=== PATIENT | female | born 1950 | race Caucasian/White ===

== ENCOUNTER 2018-05-23 09:02 | Emergency (ER) | payer MEDICARE, OTHER, SELFPAY ==
[2018-05-23] VITALS (59 sets, daily range): BP systolic 125–183; BP diastolic 71–93; PULSE 52–81; RESP 9–26; TEMP 36.5; O2SAT 89–98
--- NOTE | 2018-05-23 09:31 | W.ED.GENAD ---
Discharge Plan Disposition Patient Disposition: AGAINST MEDICAL ADVICE Discharge Details Chief Complaint: Chest Pain Clinical Impression: Chest pain Primary Care Provider: SUSIE,LOCAL ED Provider: Shadi Velasquez Home Meds and New Rx's Prescriptions: New aspirin 325 mg tablet,delayed release (DR/EC) 325 mg PO DAILY Qty: 30 RF: 2 Continue multivitamin Tablet 1 tab PO DAILY RF: 0 cetirizine 10 mg Tablet 10 mg PO DAILY RF: 0 meloxicam 7.5 mg Tablet 7.5 mg PO BID RF: 0 simvastatin 20 mg Tablet 20 mg PO HS RF: 0 levothyroxine 125 mcg Tablet 125 mcg PO DAILY RF: 0 valsartan 160 mg Tablet 160 mg PO DAILY RF: 0 Discharge Instructions Instructions: Against Medical Advice (ED) Additional Instructions: You are leaving AGAINST MEDICAL ADVICE. You understand that you may have life-threatening her lifestyle modifying disease that could lead to permanent disability or should he leave without further diagnostic workup and potential treatment. You should have a stress test performed as soon as possible. Please contact your primary care physician to arrange follow-up. Return to the ER at any time for further workup. Medical Decision Making 9:34 --67-year-old female with history of hypertension and hyperlipidemia here with chest pain initially constant squeezing for 30 minutes at rest and now mild and intermittent. ECG reviewed and interpreted by me: Normal sinus rhythm, 79 bpm, left axis deviation, T-wave inversions noted in V1 and V2, poor R-wave progression no STEMI, nondiagnostic 10:15 --chest x-ray interpreted by radiology: Negative. Labs reviewed: age adjusted ddimer neg. initial trop neg. Plan to admit. Hospitalist paged. 10:45 -- Spoke with Dr. Mazariegos who accept the patient in admission. Discussed initial diagnostic workup with the patient and my plan for admission. Patient refusing admission. Patient has decisional making capacity at this time to make informed refusal of care. I explained to her specifically my concerns for acute life-threatening or lifestyle modifying disease it would go undiagnosed and untreated should she not stay for further workup. Typically explained my plan to admit her to the hospitalist service, keep her on a hospital monitor, obtain serial cardiac enzymes, and obtain stress test as soon as possible. Patient verbalized understanding of my concerns and still prefers to be discharged. I did convince her to stay for a 4 hour troponin and a repeat EKG- she is not agreeable to staying longer than this. I offered to help arrange for outpatient stress test and patient refused noting that she would plan to have this performed at home. I did encourage her to have this done as soon as possible. 14:14 --second trop reviewed and negative, unchanged from prior. 14:32 --repeat ECG reviewed and interpreted by me: Normal sinus rhythm 77 bpm, left axis deviation, no significant change from prior EKG. I again strongly encouraged the patient to stay for further diagnostics and treatment. I reiterated my concerns and potential risks. Patient continues to have decisional making capacity and refuses further treatment at this time and would like to leave AGAINST MEDICAL ADVICE HPI General Mode of arrival: ambulatory. Date/Time Provider Initiated Documentation: 05/23/18 09:17. Limitations to Documentation: no limitations. Information obtained by: patient. HPI Narrative: 67-year-old female with history of hypertension and hyperlipidemia, presents with chief complaint of chest pain. Patient notes pain started around 845 this morning while she was at rest. Pain described as a squeezing sensation. Pain was constant and persisted for 30 minutes. Pain was localized to anterior chest and radiated into her anterior neck. Pain was severe and rated 7/10. Pain is since now improved and is intermittent and mild rated 1/10. She has no associated shortness of breath. No associated calf pain or swelling. She did recently have a long distance travel from [place] by ground. Related Data Home Medications Medication Instructions Recorded Confirmed aspirin 325 mg PO DAILY #30 tab 05/23/18 cetirizine 10 mg PO DAILY 05/23/18 05/23/18 levothyroxine 125 mcg PO DAILY 05/23/18 05/23/18 meloxicam 7.5 mg PO BID 05/23/18 05/23/18 multivitamin 1 tab PO DAILY 05/23/18 05/23/18 simvastatin 20 mg PO HS 05/23/18 05/23/18 valsartan 160 mg PO DAILY 05/23/18 05/23/18 Previous Rx's Medication Instructions Recorded aspirin 325 mg PO DAILY #30 tab 05/23/18 Allergies Allergy/AdvReac Type Severity Reaction Status Date / Time Sulfa (Sulfonamide Allergy Hives Unverified 05/23/18 09:15 Antibiotics) General Stated Complaint: Chest Pain GORDON: 2 Review of Systems Review of Systems All systems reviewed & are unremarkable except as noted in HPI and below Constitutional Denies weakness Eyes Reports blurry vision Cardiovascular Reports chest pain, Denies syncope, Denies irregular heart rhythm and Denies dyspnea Respiratory Denies dyspnea Gastrointestinal Denies nausea and Denies vomiting Neurologic Denies syncope and Denies weakness [facility] Medical History Thyroid cancer (Acute) Hyperlipemia (Acute) HTN (hypertension) (Chronic) Social History Smoking/Tobacco Use Status: Never Exam Const General: cooperative and no acute distress Orientation: alert and awake HENMT Head: normocephalic and atraumatic Mouth: moist mucous membranes Eyes Conjunctivae: conjunctivae normal EOM: EOM intact bilaterally Neck Neck: normal visual inspection, trachea midline and No JVD Chest Chest: no tenderness Resp Effort & Inspection: normal respiratory effort Auscultation: clear to auscultation bilaterally, no rales, no rhonchi and no wheezes Cardio Rate: regular rate Rhythm: regular rhythm Heart Sounds: no gallops, no murmurs and no rubs GI Palpation: soft and nontender Auscultation: normal bowel sounds Skin General skin exam: dry skin Other: warm Neuro General: alert, awake, tone normal and moves all extremities Extrem General: no calf tenderness bilaterally and no pedal edema Psych Appearance: grossly normal Mental Status: mental status grossly normal Affect: normal affect Course Vital Signs Temperature 36.5 C 05/23/18 09:11 Pulse 75 05/23/18 09:11 Respiratory Rate 14 05/23/18 09:11 Blood Pressure 153/76 H 05/23/18 09:11 Pulse Oximetry 97 05/23/18 09:11 Temperature 36.5 C 05/23/18 09:11 Temperature Source Skin 05/23/18 09:11 Pulse 75 05/23/18 09:11 Respiratory Rate 14 05/23/18 09:11 Respiratory Effort 05/23/18 09:26 Blood Pressure 153/76 H 05/23/18 09:11 Blood Pressure Position Sitting 05/23/18 09:11 Pulse Oximetry 97 05/23/18 09:11 Oxygen Delivery Method Room Air 05/23/18 09:11 Oxygen Flow Rate 0 05/23/18 09:11
--- NOTE | 2018-05-23 09:36 | ED.GENADUL_ITS ---
Discharge Plan Disposition Patient Disposition: AGAINST MEDICAL ADVICE Discharge Details Chief Complaint: Chest Pain Clinical Impression: Chest pain Primary Care Provider: SUSIE,LOCAL ED Provider: Shadi Velasquez Home Meds and New Rx's Prescriptions: New aspirin 325 mg tablet,delayed release (DR/EC) 325 mg PO DAILY Qty: 30 RF: 2 Continue multivitamin Tablet 1 tab PO DAILY RF: 0 cetirizine 10 mg Tablet 10 mg PO DAILY RF: 0 meloxicam 7.5 mg Tablet 7.5 mg PO BID RF: 0 simvastatin 20 mg Tablet 20 mg PO HS RF: 0 levothyroxine 125 mcg Tablet 125 mcg PO DAILY RF: 0 valsartan 160 mg Tablet 160 mg PO DAILY RF: 0 Discharge Instructions Instructions: Against Medical Advice (ED) Additional Instructions: You are leaving AGAINST MEDICAL ADVICE. You understand that you may have life- threatening her lifestyle modifying disease that could lead to permanent disability or should he leave without further diagnostic workup and potential treatment. You should have a stress test performed as soon as possible. Please contact your primary care physician to arrange follow-up. Return to the ER at any time for further workup. Medical Decision Making 9:34 --67-year-old female with history of hypertension and hyperlipidemia here with chest pain initially constant squeezing for 30 minutes at rest and now mild and intermittent. ECG reviewed and interpreted by me: Normal sinus rhythm, 79 bpm, left axis deviation, T-wave inversions noted in V1 and V2, poor R-wave progression no STEMI, nondiagnostic 10:15 --chest x-ray interpreted by radiology: Negative. Labs reviewed: age adjusted ddimer neg. initial trop neg. Plan to admit. Hospitalist paged. 10:45 -- Spoke with Dr. Mazariegos who accept the patient in admission. Discussed initial diagnostic workup with the patient and my plan for admission. Patient refusing admission. Patient has decisional making capacity at this time to make informed refusal of care. I explained to her specifically my concerns for acute life-threatening or lifestyle modifying disease it would go undiagnosed and untreated should she not stay for further workup. Typically explained my plan to admit her to the hospitalist service, keep her on a panel monitor, obtain serial cardiac enzymes, and obtain stress test as soon as possible. Patient verbalized understanding of my concerns and still prefers to be discharged. I did convince her to stay for a 4 hour troponin and a repeat EKG- she is not agreeable to staying longer than this. I offered to help arrange for outpatient stress test and patient refused noting that she would plan to have this performed at home. I did encourage her to have this done as soon as possible. 14:14 --second trop reviewed and negative, unchanged from prior. 14:32 --repeat ECG reviewed and interpreted by me: Normal sinus rhythm 77 bpm, left axis deviation, no significant change from prior EKG. I again strongly encouraged the patient to stay for further diagnostics and treatment. I reiterated my concerns and potential risks. Patient continues to have decisional making capacity and refuses further treatment at this time and would like to leave AGAINST MEDICAL ADVICE HPI General Mode of arrival: ambulatory . Date/Time Provider Initiated Documentation: 05/23/18 09:17 . Limitations to Documentation: no limitations . Information obtained by: patient . HPI Narrative: 67-year-old female with history of hypertension and hyperlipidemia, presents with chief complaint of chest pain. Patient notes pain started around 845 this morning while she was at rest. Pain described as a squeezing sensation. Pain was constant and persisted for 30 minutes. Pain was localized to anterior chest and radiated into her anterior neck. Pain was severe and rated 7/10. Pain is since now improved and is intermittent and mild rated 1/10. She has no associated shortness of breath. No associated calf pain or swelling. She did recently have a long distance travel from [place] by ground. Related Data Home Medications Medication Instructions Recorded Confirmed aspirin 325 mg PO DAILY #30 tab 05/23/18 cetirizine 10 mg PO DAILY 05/23/18 05/23/18 levothyroxine 125 mcg PO DAILY 05/23/18 05/23/18 meloxicam 7.5 mg PO BID 05/23/18 05/23/18 multivitamin 1 tab PO DAILY 05/23/18 05/23/18 simvastatin 20 mg PO HS 05/23/18 05/23/18 valsartan 160 mg PO DAILY 05/23/18 05/23/18 Previous Rx's Medication Instructions Recorded aspirin 325 mg PO DAILY #30 tab 05/23/18 Allergies Allergy/AdvReac Type Severity Reaction Status Date / Time Sulfa (Sulfonamide Allergy Hives Unverified 05/23/18 09:15 Antibiotics) General Stated Complaint: Chest Pain GORDON: 2 Review of Systems Review of Systems All systems reviewed & are unremarkable except as noted in HPI and below Constitutional Denies weakness Eyes Reports blurry vision Cardiovascular Reports chest pain, Denies syncope, Denies irregular heart rhythm and Denies dyspnea Respiratory Denies dyspnea Gastrointestinal Denies nausea and Denies vomiting Neurologic Denies syncope and Denies weakness [facility] Medical History Thyroid cancer (Acute) Hyperlipemia (Acute) HTN (hypertension) (Chronic) Social History Smoking/Tobacco Use Status: Never Exam Const General: cooperative and no acute distress Orientation: alert and awake HENMT Head: normocephalic and atraumatic Mouth: moist mucous membranes Eyes Conjunctivae: conjunctivae normal EOM: EOM intact bilaterally Neck Neck: normal visual inspection, trachea midline and No JVD Chest Chest: no tenderness Resp Effort & Inspection: normal respiratory effort Auscultation: clear to auscultation bilaterally, no rales, no rhonchi and no wheezes Cardio Rate: regular rate Rhythm: regular rhythm Heart Sounds: no gallops, no murmurs and no rubs GI Palpation: soft and nontender Auscultation: normal bowel sounds Skin General skin exam: dry skin Other: warm Neuro General: alert, awake, tone normal and moves all extremities Extrem General: no calf tenderness bilaterally and no pedal edema Psych Appearance: grossly normal Mental Status: mental status grossly normal Affect: normal affect Course Vital Signs Temperature 36.5 C 05/23/18 09:11 Pulse 75 05/23/18 09:11 Respiratory Rate 14 05/23/18 09:11 Blood Pressure 153/76 H 05/23/18 09:11 Pulse Oximetry 97 05/23/18 09:11 Temperature 36.5 C 05/23/18 09:11 Temperature Source Skin 05/23/18 09:11 Pulse 75 05/23/18 09:11 Respiratory Rate 14 05/23/18 09:11 Respiratory Effort 05/23/18 09:26 Blood Pressure 153/76 H 05/23/18 09:11 Blood Pressure Position Sitting 05/23/18 09:11 Pulse Oximetry 97 05/23/18 09:11 Oxygen Delivery Method Room Air 05/23/18 09:11 Oxygen Flow Rate 0 05/23/18 09:11
--- NOTE | 2018-05-23 09:42 | DI.RAD_ITS ---
SYMPTOM/DIAGNOSIS: CHEST PAIN PORTABLE AP CHEST: No priors. The heart is normal in size. The lungs are clear. The mediastinal structures and pleura appear intact. CONCLUSION: Normal chest.
[2018-05-23 09:48] LABS: Absolute Basophil Count 0.06 k/cumm (0.0-0.2); Absolute Eosinophil Count 0.15 k/cumm (0.0-0.7); Absolute Lymphocyte Count 1.86 k/cumm (1.2-3.4); Absolute Monocyte Count 0.66 k/cumm (0.11-0.7); Absolute Neutrophil Count 2.93 k/cumm (1.2-6.7); Basophils % 1.1; Eosinophils % 2.7; HCT 42.9 % (36.0-46.0); HGB 14.2 g/dL (12.0-15.5); Lymphocytes % 32.9; Mean Corp. HGB Concentration 33.1 g/dL (32.0-36.0); Mean Corpuscular Volume 90.5 fL (80-95); Mean Platelet Volume 9.3 fL (8.0-11.0); Monocytes % 11.7; Neutrophils % 51.6; Platelet Count 277 x1000/uL (130-400); RBC 4.74 m/cumm (4.00-5.20); RBC Distribution Width 13.3 % (11.7-14.6); White Blood Cell Count 5.66 k/cumm (4.4-10.8)
[2018-05-23 10:01] LABS: ALT 33 U/L (12-78); AST 17 U/L (15-37); Albumin 4.1 g/dL (3.4-5.0); Alkaline Phosphatase 80 U/L (46-116); Anion Gap 8.6 mmol/L (3-11); BUN 21 mg/dL (7-18); Bilirubin, Total 0.5 mg/dL (0.2-1.0); CO2 30.4 mmol/L (21.0-32.0); CREATININE 0.87 mg/dL (0.55-1.02); Calcium 8.8 mg/dL (8.5-10.1); Chloride 102 mmol/L (98-107); Glucose 109 mg/dL (70-100); Magnesium 1.9 mg/dL (1.8-2.4); Potassium 3.9 mmol/L (3.5-5.1); Sodium 141 mmol/L (136-145); Total Protein 7.4 g/dL (6.4-8.2); Troponin I < 0.02 ng/mL (0.00-0.06)
[2018-05-23 10:02] LABS: TSH (W/Ref FT4) 6.42 uIU/mL (0.358-3.74)
[2018-05-23 10:12] LABS: D-Dimer 653 ng/mlFEU (<500)
[2018-05-23 10:21] LABS: FREE T4 0.98 ng/dL (0.76-1.46)
[2018-05-23 13:44] LABS: Troponin I < 0.02 ng/mL (0.00-0.06)
== END 2018-05-23 14:55 | disposition left against medical advice (07) ==
PROVIDERS: Emergency Provider Student in an Organized Health Care Education/Training Program
DX: R07.9 Chest pain, unspecified (principal); Z53.29 Procedure and treatment not carried out because of patient's decision for other reasons; I10 Essential (primary) hypertension
CPT/HCPCS: 36415; 80053; 93005; 99285; 71045; 83735; 84439; 84443; 84484; 85025; 85379; 93010; 99284